=== PATIENT | male | born 1985 | race Caucasian/White ===

== ENCOUNTER 2017-05-20 13:30 | Emergency (ER) | payer OTHER ==
[~2017-05-20] VITALS: Ht 175.3 cm; Wt 82.6 kg
[~2017-05-20 13:30] MED LIST: CEPH500C PO; METH4TAB PO; OXYC-12 PO
--- OUTSIDE RECORDS SUMMARY | 2017-05-20 13:38 | XMS REPORT ---
Author Author MAUREEN MATA [facility] eClinical[employer] Address Unknown Phone Unavailable Care Team Providers [facility] Name Role Phone MAUREEN MATA CP Unavailable Allergies, Adverse Reactions, Alerts Substance Reaction Event Type N.K.D.A. Info Not Available Non Drug Allergy Problems Problem Type Condition Code Onset Dates Condition Status Assessment Tonsillitis J03.90 Active Assessment Obstructive sleep apnea syndrome G47.33 Active Problem Obstructive sleep apnea syndrome G47.33 Active Medications Medication Code System Code Instructions Start Date End Date Status Dosage Amoxicillin [facility] [address]-24 875 MG Orally 2 times a day Jun 13, 2016 Jun 23, 2016 1 tablet Procedures Procedure Coding System Code Date Office Visit, Est Pt., Level 3 CPT-4 60956 Jun 13, 2016 Vital Signs Date/Time: Jun 13, 2016 Cardiac Monitoring Heart Rate 88 bpm Weight 187 lbs Height 69 in BMI 27.61 Index Blood Pressure Diastolic 78 mmHg Blood Pressure Systolic 108 mmHg Results No Known Results Summary Purpose eClinicalWorks Submission
--- OUTSIDE RECORDS SUMMARY | 2017-05-20 13:38 | XMS REPORT | Continuity of Care Document ---
Author Author [facility] Address Unknown Phone Unavailable Allergies Medications Problems Date Dx Coded Attending Type Code Diagnosis Diagnosed By 07/22/2010 SENDY OSCAR PHD 465.9 Upper Respiratory Infection 07/22/2010 MARY HI MD 465.9 Upper Respiratory Infection 07/22/2010 SENDY OSCAR PHD 465.9 Upper Respiratory Infection 06/02/2012 SENDY OSCAR PHD 311 DEPRESSIVE DISORDER NOS 06/02/2012 MARY HI MD 311 DEPRESSIVE DISORDER NOS 06/02/2012 SENDY OSCAR PHD 311 DEPRESSIVE DISORDER NOS 11/12/2012 SENDY OSCAR PHD 300.4 MO DYSTHYMIC DISORDER 11/12/2012 MARY HI MD 300.4 MO DYSTHYMIC DISORDER 11/12/2012 SENDY OSCAR PHD 300.4 MO DYSTHYMIC DISORDER 11/16/2013 MARY HI MD 462 PHARYNGITIS-STREP 11/16/2013 SENDY OSCAR PHD 462 PHARYNGITIS-STREP 12/20/2014 SENDY OSCAR PHD V71.09 OBSERVATION OF OTHER SUSPECTED MENTAL CONDITION Procedures Code [place] [address] PSYCH DIAGNOSTIC EVALUATION 11/17/2012 51788 PSYCH DIAGNOSTIC EVALUATION 12/20/2014 Results Encounters ACCT No. Visit Date/Time Discharge Status Pt. Type Provider Facility Loc./Unit Complaint [id number] 12/20/2014 14:40:00 12/20/2014 23: 59:59 CLS Outpatient SENDY OSCAR PHD [id number] 11/16/2013 14:38:00 11/16/2013 23: 59:59 CLS Outpatient MARY HI MD [id number] 11/12/2012 10:59:00 11/12/2012 23: 59:59 CLS Outpatient SENDY OSCAR PHD
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
[2017-05-20] MEDS ORDERED: CYCL10TA9 PO (15:45)
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
[2017-05-20 15:52] VITALS: BP 120/70
== END 2017-05-20 15:50 | disposition home or self-care (01) ==
LOC: EDUNIT# 13:30 → ER 13:33
DX: V89.2XXA Person injured in unspecified motor-vehicle accident, traffic, initial encounter; M54.5 Low back pain; F17.200 Nicotine dependence, unspecified, uncomplicated
CPT/HCPCS: 72100; 99282

== ENCOUNTER 2017-08-14 14:08 | Inpatient (IN) | payer OTHER ==
[~2017-08-14] VITALS: Ht 175.3 cm; Wt 83.1 kg
[~2017-08-14 14:08] MED LIST changes: -AMOX-358 PO; -CATHETER FLUSH 10 ML SYR IV PRN; -HYDR-3812 PO; -IOHEXOL 350 MG/ML 100 ML (OMNIPAQUE 350) VIAL IV ONE; -NS 100 ML (IVPB) BAG IV ONE; -ONDA4TAB11 PO
--- OUTSIDE RECORDS SUMMARY | 2017-08-14 14:17 | XMS REPORT | Continuity of Care Document ---
Author Author [facility] Address Unknown Phone Unavailable Allergies There is no data. Medications There is no data. Problems Date Dx Coded Attending Type Code [...] Procedures [place] [address] PSYCH DIAGNOSTIC EVALUATION 11/17/2012 65323 PSYCH DIAGNOSTIC EVALUATION 12/20/2014 Results There is no data. Encounters ACCT No. Visit Date/Time Discharge Status Pt. Type Provider Facility Loc./Unit Complaint [id number] 12/20/2014 14:40:00 12/20/2014 23:59:59 CLS Outpatient SENDY OSCAR PHD [id number] 11/16/2013 14:38:00 11/16/2013 23:59:59 CLS Outpatient MARY HI MD [id number] 11/12/2012 10:59:00 11/12/2012 23:59:59 CLS Outpatient SENDY OSCAR PHD
[2017-08-14 14:25] VITALS: BP 123/64
[2017-08-14] MEDS ORDERED: ONDANSETRON 4 MG (ZOFRAN) ORAL DISSOLVE TAB PO PRN (15:15)
[2017-08-14 15:27] VITALS: BP 93/52
[2017-08-14] MEDS ORDERED: KETOROLAC 30 MG/ML VIAL ONE (15:40)
[2017-08-14] MEDS ORDERED: ACETAMINOPHEN 325 MG TABLET/CAPLET (TYLENOL) ONE (15:40)
[2017-08-14] MEDS ORDERED: PIPERACILLIN/TAZOBACTAM 4.5 GM/NS 100 ML IV NR ×2 (15:45)
[2017-08-14] MEDS ORDERED: CATHETER FLUSH 10 ML SYR IV PRN (15:45)
[2017-08-14] MEDS: NS IV 1000 ML 1,000 ML IV SCH (15:49)
[2017-08-14] MEDS ORDERED: ACETAMINOPHEN 325 MG TABLET/CAPLET (TYLENOL) PO PRN (16:00)
[2017-08-14] MEDS ORDERED: KETOROLAC 30 MG/ML VIAL IVP ONE (16:00)
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
[2017-08-14] MEDS ORDERED: NS IV 1000 ML 1,000 ML IV SCH (18:15)
[2017-08-14] MEDS: ENOXAPARIN 40 MG/0.4 ML (LOVENOX) SYR SC SCH (18:34)
[2017-08-14] MEDS: morphine INJ 4 MG/ML 1 ML (VIAL/SYRINGE) IVP PRN ×2 (18:58→23:14)
[2017-08-14 19:34] VITALS: BP 96/52
[2017-08-14 19:46] LABS: BILIRUBIN,URINE NEGATIVE (NEGATIVE); KETONES,URINE 2+ (NEGATIVE); LEUKOCYTE ESTERASE ,URINE NEGATIVE (NEGATIVE); NITRITE,URINE NEGATIVE (NEGATIVE); PH,URINE 5 (5-9); PROTEIN,URINE 1+ (NEGATIVE); UROBILINOGEN,URINE NORMAL (NORMAL)
[2017-08-14 20:11] LABS: WBC,URINE RARE /HPF
[2017-08-14] MEDS: PIPERACILLIN SODIUM/TAZOBACTAM 4.5 GM in NS (IVPB) 100 ML IV SCH (21:07)
[2017-08-14] MEDS: IBUPROFEN TABLET 200 MG TAB PO PRN (21:10)
[2017-08-14] MEDS: ONDANSETRON 4 MG (ZOFRAN) ORAL DISSOLVE TAB PO PRN (23:14)
[2017-08-15] VITALS: BP 106/56
[2017-08-15] MEDS: ACETAMINOPHEN 325 MG TABLET/CAPLET (TYLENOL) PO PRN ×3 (00:05→18:39)
[2017-08-15] MEDS: NS IV 1000 ML 1,000 ML IV SCH ×4 (02:06→23:51)
[2017-08-15] MEDS: IBUPROFEN TABLET 200 MG TAB PO PRN ×3 (03:15→17:03)
[2017-08-15 04:00] VITALS: BP 103/52
[2017-08-15] MEDS: PIPERACILLIN SODIUM/TAZOBACTAM 4.5 GM in NS (IVPB) 100 ML IV SCH ×3 (05:21→21:30)
[2017-08-15 05:31] LABS: BASOPHILS % (AUTO) 0 % (0-10); EOSINOPHILS % (AUTO) 0 % (0-10); LYMPHOCYTES # (AUTO) 0.7 X 10^3 (1.0-4.0); LYMPHOCYTES % (AUTO) 7 % (12-44); MEAN CORPUSCULAR HEMOGLOBIN 29 PG (25-34); MEAN CORPUSCULAR HGB CONC 34 G/DL (32-36); MEAN CORPUSCULAR VOLUME 87 FL (80-99); MEAN PLATELET VOLUME 9.9 FL (7.4-10.4); MONOCYTES # (AUTO) 0.8 X 10^3 (0.0-1.0); MONOCYTES % (AUTO) 8 % (0-12); NEUTROPHILS % (AUTO) 85 % (42-75); PLATELET COUNT 243 10^3/uL (130-400); RED BLOOD COUNT 4.12 10^6/uL (4.35-5.85); RED CELL DISTRIBUTION WIDTH 13.2 % (10.0-14.5); WHITE BLOOD COUNT 10.6 10^3/uL (4.3-11.0)
[2017-08-15 05:45] LABS: ALANINE AMINOTRANSFERASE 24 U/L (0-55); ALBUMIN 3.6 GM/DL (3.2-4.5); ANION GAP 7 MMOL/L (5-14); ASPARTATE AMINO TRANSFERASE 21 U/L (5-34); BILIRUBIN,TOTAL 0.2 MG/DL (0.1-1.0); BLOOD UREA NITROGEN 17 MG/DL (7-18); BUN/CREATININE RATIO 15; CALCIUM 8.2 MG/DL (8.5-10.1); CARBON DIOXIDE 22 MMOL/L (21-32); CHLORIDE 110 MMOL/L (98-107); CREATININE SERUM 1.12 MG/DL (0.60-1.30); GFR ESTIMATED > 60; GLUCOSE 97 MG/DL (70-105); POTASSIUM 4.1 MMOL/L (3.6-5.0); SODIUM 139 MMOL/L (135-145); TOTAL PROTEIN 6.5 GM/DL (6.4-8.2)
[2017-08-15 07:40] VITALS: BP 97/49
[2017-08-15] MEDS ORDERED: AMOX-358 PO (09:15)
[2017-08-15] MEDS ORDERED: ONDA4TAB11 PO (09:15)
[2017-08-15] MEDS ORDERED: HYDR-3812 PO (09:28)
--- NOTE | 2017-08-15 09:31 | Discharge Inst-Simple/Standard ---
Discharge Inst-Standard Discharge Medications New, Converted or Re-Newed RX: Call to Patients Pharmacy Patient Instructions/Follow Up Plan of Care/Instructions/FU: start augmentin tonight (08/16/17)- you will take it in the AM and PM for 10 days use zofran (ondansetron) for nausea Hydrocodone/tylenol 5/325mg for severe pain alternate tylenol and ibuprofen for fever/discomfort Activity as Tolerated: Yes Discharge Diet: Eat Small Frequent Meals Return to The Hospital For: worsening abdominal pain fever that will not go away with tylenol or ibuprofen JULIA KNIGHT MD Aug 15, 2017 09:31
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
[2017-08-15 11:20] VITALS: BP 99/58
[2017-08-15] MEDS ORDERED: HYDROcodone/APAP 5 MG/325 MG (LORTAB) TAB PO NR (11:45)
[2017-08-15 16:02] VITALS: BP 106/49
[2017-08-15] MEDS ORDERED: HYDROcodone/APAP 5 MG/325 MG (LORTAB) TAB PO PRN (16:45)
[2017-08-15] MEDS: ENOXAPARIN 40 MG/0.4 ML (LOVENOX) SYR SC SCH (17:07)
[2017-08-15] MEDS ORDERED: DEXAMETHASONE 10 MG/ML (DECADRON) 1 ML VIAL IV ONE (17:45)
--- NOTE | 2017-08-15 17:56 | Progress Note (SOAP) ---
Subjective Subjective Date Seen by Provider: Aug 15, 2017 Time Seen by Provider: 09:00 32 yo M admitted for intractable abdominal pain. patient this AM reported he was doing better- abdominal pain improved from severe pain to tenderness. He continues to spike fevers that are brought back down to 99F with ibuprofen and apap. Pt was going to be discharged to home today to complete augmentin for his mesenteric lymphadenitis but his fever continued with consistent low blood pressures of systolic in the 90s along with a new headache that neither ibuprofen, tylenol or hydrocodone helped. Ordering blood cultures for most recent fever along with flu swab because he has body aches, headache, sinus congestion and cough. Oxygen saturation has remained in the high 90s. Patient meets inpatient criteria for sepsis and concern for worsening condition given he now has an intractable headache along with tachycardia, fever and low blood pressure. Will have low threshold for lumbar puncture if headache persists. Review of Systems General: Chills, Fatigue, Malaise HEENT: Head Aches, No Visual Changes Pulmonary: No Dyspnea, Cough Cardiovascular: No: Chest Pain, Palpitations, Orthopnea Gastrointestinal: Nausea, Vomiting, Abdominal Pain (RLQ) Genitourinary: No Dysuria, No Frequency Musculoskeletal: No: neck pain, shoulder pain Neurological: Weakness Objective Exam Vital Signs Vital Sign - Last 12Hours 08/14/17 14:25 Temp 100.7 Pulse 89 Resp 16 B/P (MAP) 123/64 (83) Pulse Ox 100 O2 Delivery Room Air Capillary Refill : Vital Signs Date Time Temp Pulse Resp B/P (MAP) Pulse Ox O2 Delivery O2 Flow Rate FiO2 08/15/17 16:02 99.4 85 16 106/49 (68) 98 Room Air 08/15/17 11:30 99.8 08/15/17 11:20 99.8 97 16 99/58 (72) 97 Room Air 08/15/17 10:50 100.2 08/15/17 10:40 100.4 08/15/17 08:30 100.8 08/15/17 07:40 100.7 100 18 97/49 (65) 95 Room Air 08/15/17 04:00 98.8 85 12 103/52 (69) 97 Room Air 08/15/17 03:17 99.4 08/15/17 03:15 99.4 08/15/17 01:18 99.9 08/15/17 00:05 101.0 08/15/17 00:00 101.0 94 12 106/56 (73) 95 Room Air 08/14/17 22:15 102.5 08/14/17 21:10 101.9 08/14/17 21:00 101.9 08/14/17 19:34 99.3 93 18 96/52 (67) 98 Room Air I & O 08/15/17 07:00 Intake Total 2200 ml Output Total 1550 ml Balance 650 ml General Appearance: Moderate Distress (abdominal pain) HEENT: PERRL/EOMI Neck: Full Range of Motion Respiratory: Chest Non Tender, Lungs Clear, Normal Breath Sounds, No Accessory Muscle Use, No Respiratory Distress Cardiovascular: Regular Rate, Rhythm, No Edema, Tachycardia Gastrointestinal: Abnormal Bowel Sounds (hyperactive), Guarding (minimal), Rebound (minimal), Tenderness (moderate tenderness RLQ) Rectal: Deferred Back: Normal Inspection Extremity: Normal Capillary Refill, Non Tender, No Calf Tenderness Neurologic/Psychiatric: Alert, Oriented x3, Normal Mood/Affect Skin: Warm/Dry Lymphatic: No Adenopathy Results Lab Laboratory Tests 08/14/17 19:40: Urine Color YELLOW, Urine Clarity CLEAR, Urine pH 5, Urine Specific [place] 1.010L, Urine Protein 1+H, Urine Glucose (UA) NEGATIVE, Urine Ketones 2+H, Urine Nitrite NEGATIVE, Urine Bilirubin NEGATIVE, Urine Urobilinogen NORMAL, Urine Leukocyte Esterase NEGATIVE, Urine RBC (Auto) NEGATIVE, Urine RBC NONE, Urine WBC RARE, Urine Crystals NONE, Urine Bacteria NEGATIVE, Urine Casts NONE, Urine Mucus NEGATIVE, Urine Culture Indicated NO 08/15/17 05:18: White Blood Count 10.6, Red Blood Count 4.12L, Hemoglobin 12.0L, Hematocrit 36L , Mean Corpuscular Volume 87, Mean Corpuscular Hemoglobin 29, Mean Corpuscular Hemoglobin Concent 34, Red Cell Distribution Width 13.2, Platelet Count 243, Mean Platelet Volume 9.9, Neutrophils (%) (Auto) 85H, Lymphocytes (%) (Auto) 7L , Monocytes (%) (Auto) 8, Eosinophils (%) (Auto) 0, Basophils (%) (Auto) 0, Neutrophils # (Auto) 9.0H, Lymphocytes # (Auto) 0.7L, Monocytes # (Auto) 0.8, Eosinophils # (Auto) 0.0, Basophils # (Auto) 0.0, Sodium Level 139, Potassium Level 4.1, Chloride Level 110H, Carbon Dioxide Level 22, Anion Gap 7, Blood Urea Nitrogen 17, Creatinine 1.12, Estimat Glomerular Filtration Rate > 60, BUN/ Creatinine Ratio 15, Glucose Level 97, Lactic Acid Level 0.58, Calcium Level 8.2L, Total Bilirubin 0.2, Aspartate Amino Transf (AST/SGOT) 21, Alanine Aminotransferase (ALT/SGPT) 24, Alkaline Phosphatase 45, Total Protein 6.5, Albumin 3.6 08/15/17 16:47: Lactic Acid Level 0.90 Assessment/Plan Assessment/Plan Assessment/Plan 32 yo M *Right lower quadrant abdominal pain with nausea- improved; continue IVF, advance diet as tolerated, zofran has helped. *sepsis- fever, tachycardia, leukocytosis, blood pressure is in the 90s/50s- IVF , zosyn blood cultures pending- *mesenteric lymphadenitis- demonstrated on CT- IVF, on zosyn- *cystitis- obtaining UA. *severe headache- continue ibuprofen, apap- will do one time dose of dexamethasone 10mg IV- low threshold for lumbar puncture- *acute maxillary Sinusitis- coughing- will be covered by zosyn (and augmentin on d/c) dvt ppx: lovenox Dispo: plan was to d/c to home today- but patient is not doing much better with the new headache and continued fever with low blood pressure -continue IVF, continue zosyn- though it does not seem to be affecting the fever - the mesenteric lymphadenitis may be viral etiology- obtaining flu swab- if positive will start tamiflu- Problems: Admission Dx *Right lower quadrant abdominal pain with nausea- *sepsis due to abdominal vs urinary source- *mesenteric lymphadenitis- *cystitis- Clinical Quality Measures DVT/VTE Risk/Contraindication: Risk Factor Score Per Nursin RFS Level Per Nursing on Admit: 1=Low/No VTE PPX JULIA KNIGHT MD Aug 15, 2017 17:56
[2017-08-15] MEDS: ONDANSETRON 4 MG (ZOFRAN) ORAL DISSOLVE TAB PO PRN (18:14)
[2017-08-15] MEDS: morphine INJ 4 MG/ML 1 ML (VIAL/SYRINGE) IVP PRN (18:41)
[2017-08-15 20:07] VITALS: BP 113/56
[2017-08-16] VITALS: BP 100/53
[2017-08-16 04:00] VITALS: BP 100/58
[2017-08-16] MEDS: PIPERACILLIN SODIUM/TAZOBACTAM 4.5 GM in NS (IVPB) 100 ML IV SCH (05:11)
[2017-08-16 06:16] LABS: BASOPHILS % (AUTO) 0 % (0-10); EOSINOPHILS % (AUTO) 0 % (0-10); LYMPHOCYTES # (AUTO) 0.8 X 10^3 (1.0-4.0); LYMPHOCYTES % (AUTO) 6 % (12-44); MEAN CORPUSCULAR HEMOGLOBIN 29 PG (25-34); MEAN CORPUSCULAR HGB CONC 33 G/DL (32-36); MEAN CORPUSCULAR VOLUME 88 FL (80-99); MEAN PLATELET VOLUME 10.4 FL (7.4-10.4); MONOCYTES # (AUTO) 0.7 X 10^3 (0.0-1.0); MONOCYTES % (AUTO) 6 % (0-12); NEUTROPHILS # (AUTO) 10.4 X 10^3 (1.8-7.8); NEUTROPHILS % (AUTO) 88 % (42-75); PLATELET COUNT 235 10^3/uL (130-400); RED BLOOD COUNT 4.19 10^6/uL (4.35-5.85); RED CELL DISTRIBUTION WIDTH 13.3 % (10.0-14.5); WHITE BLOOD COUNT 11.8 10^3/uL (4.3-11.0)
[2017-08-16 06:38] LABS: ALANINE AMINOTRANSFERASE 23 U/L (0-55); ALBUMIN 3.7 GM/DL (3.2-4.5); ANION GAP 8 MMOL/L (5-14); ASPARTATE AMINO TRANSFERASE 19 U/L (5-34); BILIRUBIN,TOTAL < 0.1 MG/DL (0.1-1.0); BLOOD UREA NITROGEN 13 MG/DL (7-18); BUN/CREATININE RATIO 13; CALCIUM 8.8 MG/DL (8.5-10.1); CARBON DIOXIDE 22 MMOL/L (21-32); CHLORIDE 112 MMOL/L (98-107); CREATININE SERUM 1.02 MG/DL (0.60-1.30); GFR ESTIMATED > 60; GLUCOSE 141 MG/DL (70-105); POTASSIUM 4.2 MMOL/L (3.6-5.0); SODIUM 142 MMOL/L (135-145); TOTAL PROTEIN 6.8 GM/DL (6.4-8.2)
[2017-08-16 07:25] VITALS: BP 107/56
--- NOTE | 2017-08-16 09:24 | Discharge Summary ---
Diagnosis/Chief Complaint Date of Admission Aug 14, 2017 Date of Discharge Aug 15 2017 Admission Diagnosis Admission Diagnosis *Right lower quadrant abdominal pain with nausea- *sepsis due to abdominal vs urinary source- *mesenteric lymphadenitis- *cystitis- Discharge Diagnosis *Right lower quadrant abdominal pain-improved *sepsis- resolved *mesenteric lymphadenitis- *cystitis- *severe headache- improved *acute maxillary Sinusitis- Reason Hospital Visit 32 year old male seen at [facility] for : RLQ pain Onset: Today at 900am- felt like he was kicked in the groin at first. Location? currently RLQ pain with nausea- laying on his side helps with the nausea. Symptoms: nausea, light headed, chilling Medicine used: nothing, NPO What makes it worse? standing What makes it better? leaning forward Current Status: pain same, nausea/lightheaded worse Energy level: decreased Appetite: decreased has not urinated today- had diarrhea 2 days ago. Drank a couple etohic beverages last night. Denies dysuria last night. Pt is not concerned about any STIs. -Patient was sent from [facility] for a CT ab/pelvis to evaluate appendicitis due to the the RLQ tenderness, rebound tenderness. Negative psoas sign. -He did vomiting in the hallway at [address]. Will admit observation for further evaluation. Discharge Summary Hospital Course Hospital Course 32 yo M admitted for intractable abdominal pain found to have mesenteric lymphadenitis- Patient's condition worsened on 08/15/17 with continued fever, tachycardia, hypotension (but systolic did not go below 90s). I did change his admission status to inpatient given his worsening of condition. He developed a severe headache that may have been related to morphine. Blood cultures were obtained on 08/15/17. Will monitor for their results. Patient remained afebrile overnight. His abdominal pain has nearly resolved. Headaches have improved. He was given 10mg dexamethasone for his headache and overall pain and continued nausea. He did tolerate po intake. Patient this AM reported he feels much better and is ready to go home. Patient deemed stable for discharge on 08/16/17. He will complete augmentin for his mesenteric lymphadenitis. Labs Laboratory Tests 08/14/17 19:40: Urine Specific [place] 1.010L, Urine Protein 1+H, Urine Ketones 2+H 08/15/17 05:18: Red Blood Count 4.12L, Hemoglobin 12.0L, Hematocrit 36L, Neutrophils (%) (Auto) 85H, Lymphocytes (%) (Auto) 7L, Neutrophils # (Auto) 9.0H, Lymphocytes # (Auto) 0.7L, Chloride Level 110H, Calcium Level 8.2L 08/15/17 16:47: 08/16/17 05:18: Red Blood Count 4.19L, Hemoglobin 12.2L, Hematocrit 37L, Neutrophils (%) (Auto) 88H, Lymphocytes (%) (Auto) 6L, Neutrophils # (Auto) 10.4H, Lymphocytes # (Auto ) 0.8L, Chloride Level 112H, White Blood Count 11.8H, Glucose Level 141H, Total Bilirubin < 0.1L Procedures None. Discharge Physical Examination Allergies: Coded Allergies: No Known Drug Allergies (Unverified , 05/16/12) Vitals & I&Os Vital Signs Date Time Temp Pulse Resp B/P (MAP) Pulse Ox O2 Delivery O2 Flow Rate FiO2 08/16/17 07:25 98.6 69 18 107/56 (73) 97 Room Air General Appearance: Alert, Oriented X3, Cooperative HEENT: Atraumatic Respiratory: Clear to Auscultation Cardiovascular: Regular Rate Abdominal: Normal Bowel Sounds, Soft Extremities: No Clubbing Skin: No Rashes Neuro: Normal Gait, Normal Speech, Strength at 5/5 X4 Ext Psych/Mental Status: Mental Status NL, Mood NL Discharge Home Medications Reviewed and agree with Discharge Medication list on patient's Discharge Instruction sheet Condition at Discharge stable Instructions to Patient/Family Please see electronic discharge instructions given to patient. Clinical Quality Measures DVT/VTE Risk/Contraindication: Risk Factor Score Per Nursin RFS Level Per Nursing on Admit: 1=Low/No VTE PPX JULIA KNIGHT MD Aug 16, 2017 09:24
[2017-08-17 15:43] VITALS: BP 106/64
--- OUTSIDE RECORDS SUMMARY | 2017-08-17 15:43 | XMS REPORT | Continuity of Care Document ---
Author Author [facility] Address Unknown Phone Unavailable Allergies There is [...] Procedures Code [place] [address] PSYCH DIAGNOSTIC EVALUATION 11/17/2012 [id number] PSYCH DIAGNOSTIC EVALUATION 12/20/2014 Results There is no data. Encounters ACCT No. Visit Date/Time Discharge Status Pt. Type Provider Facility Loc./Unit Complaint [id number] 12/20/2014 14:40:00 12/20/2014 23:59:59 CLS Outpatient SENDY OSCAR PHD [id number] 11/16/2013 14:38:00 11/16/2013 23:59:59 CLS Outpatient MARY HI MD [id number] 11/12/2012 10:59:00 11/12/2012 23:59:59 CLS Outpatient SENDY OSCAR PHD
== END 2017-08-16 09:40 | disposition home or self-care (01) | DRG 872 ==
LOC: 4TH 14:10 → UNDOADMOB 14:10 → 4TH 14:16 → INTOOBSV 08-15 17:47 → OBSVTOIN 08-15 17:47 → 4TH 08-15 17:49 → UNDODISIN 08-16 09:40
PROVIDERS: ADMIT Family Medicine; ATTEND Family Medicine
DX: A41.9 Sepsis, unspecified organism (principal); I88.0 Nonspecific mesenteric lymphadenitis; N30.90 Cystitis, unspecified without hematuria; R51 Headache; J01.00 Acute maxillary sinusitis, unspecified; T40.2X5A Adverse effect of other opioids, initial encounter
CPT/HCPCS: 36415; 80053; 81000; 83605; 85025; 87040; 87804; G0378

== ENCOUNTER → 2017-08-14 | Outpatient (CLI) | payer OTHER ==
[~2017-08-14] MED LIST changes: +AMOX-358 PO; +CATHETER FLUSH 10 ML SYR IV PRN; +CYCL10TA9 PO; +HYDR-3812 PO; +IOHEXOL 350 MG/ML 100 ML (OMNIPAQUE 350) VIAL IV ONE; +NS 100 ML (IVPB) BAG IV ONE; +ONDA4TAB11 PO
[2017-08-14 13:32] LABS: BASOPHILS % (AUTO) 0 % (0-10); EOSINOPHILS % (AUTO) 0 % (0-10); LYMPHOCYTES # (AUTO) 0.4 X 10^3 (1.0-4.0); LYMPHOCYTES % (AUTO) 4 % (12-44); MEAN CORPUSCULAR HEMOGLOBIN 30 PG (25-34); MEAN CORPUSCULAR HGB CONC 34 G/DL (32-36); MEAN CORPUSCULAR VOLUME 86 FL (80-99); MEAN PLATELET VOLUME 9.8 FL (7.4-10.4); MONOCYTES # (AUTO) 1.1 X 10^3 (0.0-1.0); MONOCYTES % (AUTO) 9 % (0-12); NEUTROPHILS # (AUTO) 9.9 X 10^3 (1.8-7.8); NEUTROPHILS % (AUTO) 86 % (42-75); PLATELET COUNT 297 10^3/uL (130-400); RED BLOOD COUNT 4.61 10^6/uL (4.35-5.85); RED CELL DISTRIBUTION WIDTH 13.1 % (10.0-14.5); WHITE BLOOD COUNT 11.4 10^3/uL (4.3-11.0)
--- NOTE | 2017-08-14 13:40 | Diagnostic Imaging Report ---
PROCEDURE: CT abdomen and pelvis with contrast, rule out appendicitis. TECHNIQUE: Multiple contiguous axial images were obtained through the abdomen and pelvis after the administration of intravenous contrast. INDICATION: Right upper quadrant pain with fever COMPARISON: None available. FINDINGS: Lower chest: The lung bases are clear. No pericardial or pleural effusion. Peritoneum: No free intraperitoneal air or fluid. Liver and biliary system: The liver is normal. The gallbladder is normal. No biliary duct dilation. Spleen and Pancreas: Spleen is normal. The pancreas enhances normally without mass lesion or peripancreatic inflammatory changes. Adrenals: Normal. tract: The kidneys enhance normally without suspicious mass or obstruction. Urinary bladder has mild circumferential wall thickening which is nonspecific. Prostate is normal. GI tract: Stomach is decompressed. No bowel obstruction. No pericolonic inflammatory changes. Appendix is normal in caliber measuring 6 mm in maximal diameter and has smooth distal tapering. No periappendiceal inflammatory changes. Vasculature and Lymph nodes: Normal caliber aorta. No abdominal or pelvic lymphadenopathy. There are a few borderline enlarged right lower quadrant mesenteric root lymph nodes which can be seen with mesenteric adenitis. Musculoskeletal: No concerning osseous lesion. IMPRESSION: 1. Circumferential wall thickening of the urinary bladder can be seen with cystitis. Correlation with urinalysis is recommended. 2. No appendicitis. There are a few borderline enlarged right lower quadrant lymph nodes which can be seen with mesenteric adenitis. Dictated by: Dictated on workstation # [id number]
[2017-08-14 13:48] LABS: ALANINE AMINOTRANSFERASE 22 U/L (0-55); ALBUMIN 4.4 GM/DL (3.2-4.5); ANION GAP 10 MMOL/L (5-14); ASPARTATE AMINO TRANSFERASE 20 U/L (5-34); BILIRUBIN,TOTAL 0.2 MG/DL (0.1-1.0); BLOOD UREA NITROGEN 18 MG/DL (7-18); BUN/CREATININE RATIO 16; CALCIUM 9.6 MG/DL (8.5-10.1); CARBON DIOXIDE 24 MMOL/L (21-32); CHLORIDE 103 MMOL/L (98-107); CREATININE SERUM 1.13 MG/DL (0.60-1.30); GFR ESTIMATED > 60; GLUCOSE 96 MG/DL (70-105); POTASSIUM 4.7 MMOL/L (3.6-5.0); SODIUM 137 MMOL/L (135-145); TOTAL PROTEIN 7.8 GM/DL (6.4-8.2)
[2017-08-14 13:56] LABS: EOSINOPHILS % (MANUAL) 1 %; LYMPHOCYTES % (MANUAL) 4 %; NEUTROPHILS % (MANUAL) 85 %
== END ==
LOC: RAD 12:38
PROVIDERS: ATTEND Family Medicine
DX: N32.89 Other specified disorders of bladder (principal); I88.0 Nonspecific mesenteric lymphadenitis
CPT/HCPCS: 36415; 74177; 80053; 85007; 85027

== ENCOUNTER → 2018-04-12 | Outpatient (CLI) | payer OTHER ==
[~2018-04-12] MED LIST changes: +ACHD5005 PO; +AMOX-358 PO; +ONDA4TAB11 PO
--- NOTE | 2018-04-12 13:49 | Diagnostic Imaging Report ---
The alignment is normal. The vertebral body heights are well-maintained. No spondylolysis or spondylolisthesis. There is some degenerative disease at L5-S1. There is mild lower lumbar hypertrophic degenerative facet disease. Impression: No acute fracture or traumatic subluxation. Degenerative disease at L5-S1 with some lower lumbar hypertrophic degenerative facet disease. Dictated by: Dictated on workstation # [id number]
== END ==
LOC: RAD 13:11
PROVIDERS: ATTEND Chiropractor
DX: M47.27 Other spondylosis with radiculopathy, lumbosacral region (principal); R29.3 Abnormal posture
CPT/HCPCS: 72100

== ENCOUNTER → 2021-05-29 | Outpatient (CLI) | payer OTHER ==
--- NOTE | 2021-05-29 10:13 | Diagnostic Imaging Report ---
PROCEDURE: MRI lumbar spine. TECHNIQUE: Multiplanar, multisequence MRI of the lumbar spine was performed without contrast. INDICATION: Low back pain. COMPARISON: Radiographs from 04/12/2018 FINDINGS: Alignment of the lumbar spine is normal. There is no spondylolisthesis. There is multilevel disc height loss throughout the lumbar spine which is most pronounced at L5-S1. Vertebral body heights are preserved. There are Modic type II degenerative endplate changes at L4-L5 and L5-S1 with associated Schmorl's nodes. No fracture is seen. Soft tissues about the lumbar spine demonstrate no acute abnormality. T12-L1: No significant disc bulge. No spinal canal or foraminal stenosis. L1-L2: No significant disc bulge. No spinal canal or foraminal stenosis. L2-L3: Mild diffuse disc bulge with small central disc protrusion and posterior annular fissure. Mild facet arthropathy. Moderate spinal canal stenosis with mild narrowing of the left lateral recess. No right foraminal stenosis. No left foraminal stenosis. L3-L4: Diffuse disc bulge with left foraminal disc protrusion. Moderate spinal canal stenosis with marked narrowing of the left lateral recess. Mild right and moderate left foraminal stenosis. L4-L5: Diffuse disc bulge with facet arthropathy. Narrowing of the lateral recesses bilaterally with moderate spinal canal stenosis. Moderate bilateral foraminal stenosis. L5-S1: Diffuse disc bulge with large left paracentral and foraminal disc extrusion which measures up to 2 x 1 cm on axial imaging, and 1.2 cm craniocaudal. This appears to cause significant mass effect on the left S1 nerve root with complete effacement of the left lateral recess. There is moderate spinal canal stenosis. There is severe bilateral foraminal stenosis. IMPRESSION: 1. Multilevel degenerative disc disease, most pronounced in the lower lumbar spine. This includes a large disc extrusion at L5-S1 which appears to contact the left S1 nerve root. 2. Multilevel moderate spinal canal stenosis. Multilevel foraminal stenosis, most severe at L5-S1. Dictated by: Dictated on workstation # [id number]
== END ==
LOC: RAD 08:36
PROVIDERS: ATTEND Family Medicine
DX: M48.07 Spinal stenosis, lumbosacral region (principal); M51.27 Other intervertebral disc displacement, lumbosacral region; M51.37 Other intervertebral disc degeneration, lumbosacral region
CPT/HCPCS: 72148